=== PATIENT | female | born 1955 | race Caucasian/White ===

== ENCOUNTER 2018-06-25 10:26 | Emergency (ER) | payer MEDICAID ==
[~2018-06-25] VITALS: Ht 154.9 cm; Wt 59.4 kg
[2018-06-25 10:33] VITALS: BP_SYST 140
--- NOTE | 2018-06-25 11:03 | NUR ---
Patient to ER bed 7 to gown for evaluation. Side rails up. Report given to Carly MORFIN.
--- NOTE | 2018-06-25 11:16 | NUR ---
DR COCHRAN IN ROOM FOR EXAM
--- NOTE | 2018-06-25 11:31 | NUR ---
PT COMES TO ER WITH C/O MID CENTER OF BACK AREA, DENIES ACUTE INJURY. PAIN IS ACHE 4/10, MORE WITH MOVEMENT. DENIES SOB OR CP. STATES SHE THINKS SHE HAS LUNG CANCER RELATED TO HER BACK PAIN, HERE FOR MEDICAL CLEARANCE. RESP EVEN AND UNLBAORED, IN NAD. SPEAKING CLEAR SENTENCES. SKIN W/D/I. DENIES FEVERS/N/V/D/. AWAITING FOR ORDERS.
[2018-06-25 12:01] VITALS: BP_SYST 128
--- NOTE | 2018-06-25 12:30 | NUR ---
Patient given written and verbal discharge instructions and verbalizes understanding. ER MD discussed with patient the results and treatment provided. Patient in stable condition. ID arm band removed. Patient educated on pain management and to follow up with PMD. Pain Scale []. Opportunity for questions provided and answered. Medication side effect fact sheet provided.
== END 2018-06-25 12:30 | disposition home or self-care (01) ==
LOC: SED 10:26
DX: S29.012A Strain of muscle and tendon of back wall of thorax, initial encounter (principal); F17.200 Nicotine dependence, unspecified, uncomplicated; R03.0 Elevated blood-pressure reading, without diagnosis of hypertension; F41.9 Anxiety disorder, unspecified; X58.XXXA Exposure to other specified factors, initial encounter; Y93.89 Activity, other specified; Y92.89 Other specified places as the place of occurrence of the external cause; Y99.8 Other external cause status
CPT/HCPCS: 71046-TC; 99283